=== PATIENT | female | born 1945 | race Caucasian/White ===

== ENCOUNTER 2021-06-22 18:23 | Inpatient (IN) | payer MEDICARE, BC ==
[~2021-06-22] VITALS: Ht 160 cm; Wt 51.3 kg
[2021-06-22] MEDS ORDERED: LEVOTHYROXINE (18:45)
[2021-06-22] MEDS ORDERED: ATORVASTATIN (18:45)
[2021-06-22 20:50] LABS: HEMATOCRIT 36.9 % (31.2-41.9); PLATELET COUNT (AUTO) 149 K/uL (179-408)
[2021-06-22 20:58] LABS: CARBON DIOXIDE 26 mmol/L (21-32); CHLORIDE 101 mmol/L (98-107); CREATININE 0.6 mg/dL (0.6-1.3); GLUCOSE 114 mg/dL (74-106); POTASSIUM 3.8 mmol/L (3.5-5.1); UREA NITROGEN, BLOOD 11 mg/dL (7-18)
[2021-06-22 21:04] LABS: ALANINE AMINOTRANSFERASE 42 U/L (14-59); ALKALINE PHOSPHATASE 273 U/L (50-136); ASPARTATE AMINOTRANSFERASE 105 U/L (15-37); BILIRUBIN,DIRECT 0.2 mg/dL (0.0-0.2); BILIRUBIN,TOTAL 0.7 mg/dL (0.2-1.0); TOTAL PROTEIN, SERUM 7.2 g/dL (6.4-8.2)
[2021-06-22 21:15] LABS: ETHANOL < 3 MG/DL (0-0)
[2021-06-22 21:37] LABS: ACETAMINOPHEN < 2.0 ug/mL (10-30)
[2021-06-22 23:26] VITALS: BP 143/90
[2021-06-23] MEDS ORDERED: MAG HYDROX/AL HYDROX/SIMETH 30 ML LIQUID UDC PO PRN (00:30)
[2021-06-23] MEDS ORDERED: TEMAZEPAM 7.5 MG CAPSULE PO PRN (00:30)
[2021-06-23] MEDS ORDERED: LORAZEPAM 0.5 MG TABLET PO PRN (00:30)
[2021-06-23] MEDS ORDERED: MAGNESIUM HYDROXIDE 30 ML LIQUID UDC PO PRN (00:30)
[2021-06-23] MEDS ORDERED: ACETAMINOPHEN 325 MG TABLET PO PRN (00:30)
[2021-06-23 03:22] VITALS: BP 143/90
[2021-06-23] MEDS ORDERED: LEVO88TA5 PO (07:25)
[2021-06-23] MEDS ORDERED: ATOR20TA PO (07:25)
[2021-06-23 07:31] VITALS: BP 134/79
[2021-06-23] MEDS: LORAZEPAM 0.5 MG TABLET PO SCH ×2 (11:11→17:05)
[2021-06-23] MEDS: THIAMINE HCL 100 MG TABLET PO SCH (11:11)
[2021-06-23] MEDS: SERTRALINE HCL 50 MG TABLET PO SCH (13:52)
[2021-06-23 16:30] VITALS: BP 152/84
[2021-06-23] MEDS: HYDROCODONE/APAP 10-325 MG TABLET PO PRN (19:51)
[2021-06-23 19:58] VITALS: BP 148/85
[2021-06-23] MEDS: ATORVASTATIN 20 MG TABLET PO SCH (20:00)
[2021-06-24] MEDS: LEVOTHYROXINE SODIUM 88 MCG TABLET PO SCH ×2 (07:00→08:29)
[2021-06-24] MEDS: LORAZEPAM 0.5 MG TABLET PO SCH ×2 (08:02→16:03)
[2021-06-24] MEDS: THIAMINE HCL 100 MG TABLET PO SCH (08:02)
[2021-06-24] MEDS: HYDROCODONE/APAP 10-325 MG TABLET PO PRN ×2 (08:08→20:08)
[2021-06-24 08:11] LABS: THYROID STIMULATING HORMONE 2.444 mIU/mL (0.358-3.740)
[2021-06-24 08:13] VITALS: BP 157/88
[2021-06-24] MEDS: ENSURE ENLIVE (VAN) 240 ML LIQUID PO SCH ×2 (11:32→16:03)
[2021-06-24] MEDS: SERTRALINE HCL 50 MG TABLET PO SCH (13:17)
[2021-06-24 16:48] VITALS: BP 156/90
[2021-06-24 20:00] VITALS: BP 133/69
[2021-06-24] MEDS: ATORVASTATIN 20 MG TABLET PO SCH (20:08)
[2021-06-25] MEDS: LEVOTHYROXINE SODIUM 88 MCG TABLET PO SCH (06:02)
[2021-06-25] MEDS: HYDROCODONE/APAP 10-325 MG TABLET PO PRN ×3 (06:08→20:20)
[2021-06-25 07:43] VITALS: BP 146/78
[2021-06-25] MEDS: ENSURE ENLIVE (VAN) 240 ML LIQUID PO SCH ×2 (08:12→16:16)
[2021-06-25] MEDS: LORAZEPAM 0.5 MG TABLET PO SCH ×2 (08:12→16:12)
[2021-06-25] MEDS: THIAMINE HCL 100 MG TABLET PO SCH (08:13)
[2021-06-25] MEDS: SERTRALINE HCL 50 MG TABLET PO SCH (12:02)
[2021-06-25 16:13] VITALS: BP 131/98
[2021-06-25 20:00] VITALS: BP_SYST 131; BP_SYST 149; BP_DIAS 71; BP_DIAS 77
[2021-06-25] MEDS: ATORVASTATIN 20 MG TABLET PO SCH (20:20)
[2021-06-26] MEDS: LEVOTHYROXINE SODIUM 88 MCG TABLET PO SCH (06:37)
[2021-06-26 07:39] VITALS: BP 161/89
[2021-06-26] MEDS: LORAZEPAM 0.5 MG TABLET PO SCH (08:12)
[2021-06-26] MEDS: THIAMINE HCL 100 MG TABLET PO SCH (08:12)
[2021-06-26] MEDS: ENSURE ENLIVE (VAN) 240 ML LIQUID PO SCH ×2 (08:13→17:06)
[2021-06-26] MEDS: HYDROCODONE/APAP 10-325 MG TABLET PO PRN ×2 (09:04→20:19)
[2021-06-26] MEDS: SERTRALINE HCL 50 MG TABLET PO SCH (12:46)
[2021-06-26 16:13] VITALS: BP 155/85
[2021-06-26 20:03] VITALS: BP 140/70
[2021-06-26] MEDS: ATORVASTATIN 20 MG TABLET PO SCH (20:19)
[2021-06-27] MEDS: LEVOTHYROXINE SODIUM 88 MCG TABLET PO SCH (06:20)
[2021-06-27] MEDS: HYDROCODONE/APAP 10-325 MG TABLET PO PRN ×2 (06:20→21:06)
[2021-06-27] MEDS: ENSURE ENLIVE (VAN) 240 ML LIQUID PO SCH ×2 (08:20→16:51)
[2021-06-27] MEDS: THIAMINE HCL 100 MG TABLET PO SCH (08:20)
[2021-06-27 09:11] VITALS: BP 126/80
[2021-06-27] MEDS: SERTRALINE HCL 50 MG TABLET PO SCH (13:16)
[2021-06-27 16:00] VITALS: BP 116/65
[2021-06-27 19:53] VITALS: BP 118/74
[2021-06-27] MEDS: ATORVASTATIN 20 MG TABLET PO SCH (20:17)
[2021-06-28] MEDS: LEVOTHYROXINE SODIUM 88 MCG TABLET PO SCH (06:33)
[2021-06-28 07:30] VITALS: BP 143/80
[2021-06-28] MEDS: ENSURE ENLIVE (VAN) 240 ML LIQUID PO SCH ×2 (08:48→19:07)
[2021-06-28] MEDS: THIAMINE HCL 100 MG TABLET PO SCH (08:48)
[2021-06-28] MEDS: HYDROCODONE/APAP 10-325 MG TABLET PO PRN (09:58)
[2021-06-28] MEDS: SERTRALINE HCL 50 MG TABLET PO SCH (12:38)
== END 2021-06-28 15:40 | disposition home or self-care (01) | DRG 881 ==
LOC: ER 18:30 → GPS 23:05
PROVIDERS: ADMIT Psychiatry & Neurology Psychosomatic Medicine; ATTEND Nurse Practitioner Acute Care
DX: F32.9 Major depressive disorder, single episode, unspecified (principal); R45.851 Suicidal ideations; F10.10 Alcohol abuse, uncomplicated; Y90.0 Blood alcohol level of less than 20 mg/100 ml; R79.89 Other specified abnormal findings of blood chemistry; I10 Essential (primary) hypertension; E03.9 Hypothyroidism, unspecified; G89.29 Other chronic pain; M54.50 Low back pain, unspecified; F41.9 Anxiety disorder, unspecified; F09 Unspecified mental disorder due to known physiological condition; E78.5 Hyperlipidemia, unspecified; D69.6 Thrombocytopenia, unspecified; Z79.890 Hormone replacement therapy; Z79.899 Other long term (current) drug therapy
CPT/HCPCS: 36415; 70450; 83690; 84443; 85025; 97161; A4663; G0480